=== PATIENT | female | born 1990 | race Hispanic/Latino ===

== ENCOUNTER 2023-06-21 16:05 | Emergency (ER) | payer OTHER ==
[2023-06-21 17:38] LABS: Absolute Lymphocytes (CBC) 2.1 K/uL (0.7-4.9); Hematocrit 44.1 % (36.0-45.0); Lymphocytes % 25.3 % (15.3-44.8); MCV 92.8 fL (80-100); MPV 9.1 fL (7.6-11.3); Platelets 228 thou/uL (152-406); RBC Red Blood Cell Count 4.75 M/uL (3.86-4.86)
[2023-06-21 17:54] LABS: Specific Gravity 1.029 (1.005-1.030)
[2023-06-21 17:58] LABS: Specific Gravity 1.029 (1.005-1.030); Urine Bacteria <20 /HPF (<20); Urine Bilirubin NEGATIVE (Negative); Urine Blood 3+ (OVER) (Negative); Urine Clarity Clear (Clear); Urine Color Light-Yellow (Yellow); Urine Glucose NEGATIVE (Negative); Urine Mucus Slight /HPF (None Seen); Urine Protein TRACE (Negative); Urine Urobilinogen Normal (Normal); Urine pH 6.5 (5.0-7.0)
--- NOTE | 2023-06-21 18:07 | RAD REPORT ---
EXAM DESCRIPTION: US - Transvaginal OB - 06/21/2023 5:46 pm CLINICAL HISTORY: with vaginal bleeding COMPARISON: None. FINDINGS: The uterus measures 9 x 5 x 6 centimeters. An irregularly shaped gestational sac was init ially visualize within endometrium of the uterine fundus. By the end of the exam it have migrated par tially into endometrium of the uterine body. The gestational sac measures 1.3 centimeters. A po le was not visualized. Ovaries are normal in size and echotexture.. The right and left adnexa unremarkable No significant free fluid IMPRESSION: These findings probably may indicate an impending . This should all be correlate d clinically. Serial beta HCG levels as well as follow up endovaginal sonogram in the
[2023-06-21 19:10] LABS: Potassium 3.5 mEq/L (3.5-5.1)
--- NOTE | 2023-06-21 19:38 | EDPHYS ---
Physician Documentation [facility] Name: Ceci Barron Age: 33 yrs Sex: Female : 1990 Arrival Date: 06/21/2023 Time: 16:05 Bed 14 Private MD: ED Physician Franko Cuevas HPI: 06/21 16:15 This 33 yrs old Female presents to ER via Unassigned with complaints of kb Vaginal Bleeding, + Preg <12wks. 16:15 The patient presents to the emergency department with abdominal pain, of the suprapubic kb area, vaginal bleeding, that is light, with clots. The estimated gestational age is 6 weeks. course: care: none. Previous pregnancies: in previous pregnancies patient has had. Associated signs and symptoms: Pertinent positives: abdominal pain, vaginal bleeding. The patient has not experienced similar symptoms in the past. The patient has not recently seen a physician. 16:16 Pt presents for suprapubic pain and vaginal bleeding with small clots that started kb today. 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 - Social history:: Smoking status: Patient denies any tobacco usage or history of. ROS: 16:16 Constitutional: Negative for fever, chills, and weight loss. kb 16:16 Abdomen/GI: Positive for abdominal pain. 16:16 : Positive for vaginal bleeding. 16:16 All other systems are negative. Exam: 16:16 Constitutional: This is a well developed, well nourished patient who is awake, alert, kb and in no acute distress. Head/Face: Normocephalic, atraumatic. ENT: Moist Mucous membranes Cardiovascular: Regular rate and rhythm with a normal S1 and S2. No gallops, murmurs, or rubs. No pulse deficits. Respiratory: Respirations even and unlabored. No increased work of breathing. Talking in full sentences Abdomen/GI: Soft, non-tender. No distention Skin: Warm, dry with normal turgor. Normal color. MS/ Extremity: Pulses equal, no cyanosis. Neurovascular intact. Full, normal range of motion. Neuro: Awake and alert, GCS 15, oriented to person, place, time, and situation. Moves all extremities. Normal gait. Vital Signs: 16:15 BP 113 / 74; Pulse 97; Resp 18; Temp 98.8; Pulse Ox 100% ; Weight 58.97 kg; Pain 8/10; cm10 17:00 BP 107 / 67; Pulse 87; Resp 16; Pulse Ox 100% on R/A; db 19:30 BP 101 / 79; Pulse 93; Resp 18 S; Pulse Ox 100% on R/A; ha1 16:15 Pain Scale: Adult cm10 MDM: 16:10 Patient medically screened. kb 16:17 Differential diagnosis: threatened Ab, inevitable Ab, missed Ab. Data reviewed: vital kb signs, nurses notes. 19:36 Counseling: I had a detailed discussion with the patient and/or guardian regarding the kb historical points, exam findings, and any diagnostic results supporting the discharge/admit diagnosis, lab results, radiology results, the need for outpatient follow up, an OB/Gyne specialist, to return to the emergency department if symptoms worsen or persist or if there are any questions or concerns that arise at home. 06/21 16:15 Order name: Abo/rh Typing; Complete Time: 19:36 kb 06/21 16:15 Order name: Basic Metabolic Panel; Complete Time: 19:10 kb 06/21 16:15 Order name: CBC with Diff; Complete Time: 17:43 kb 06/21 16:15 Order name: Test, Urine; Complete Time: 18:00 kb 06/21 16:15 Order name: Quantitative Hcg; Complete Time: 19:10 kb 06/21 16:15 Order name: Urinalysis w/ reflexes; Complete Time: 18:00 kb 06/21 16:15 Order name: US Transvaginal Ob; Complete Time: 18:09 kb 06/21 16:15 Order name: IV Saline Lock; Complete Time: 17:26 kb 06/21 16:15 Order name: Labs collected and sent; Complete Time: 17:26 kb 06/21 16:15 Order name: NPO; Complete Time: 17:26 kb 06/21 17:42 Order name: Labs - recollect needed: RECOLLECT BLOOD/ HEMOLYZED/ PRINTING LABELS; eb Complete Time: 18:42 Administered Medications: 19:39 Drug: Acetaminophen PO 1000 mg Route: PO; ha1 19:47 Follow up: Response: No adverse reaction ha1 Disposition: 20:22 Co-signature as Attending Physician, Franko Cuevas MD I reviewed the patient's care rn provided by the Advanced Practice Provider and agree with the diagnosis and treatment plan. Disposition Summary: 06/21/23 19:37 Discharge Ordered Location: Home kb Condition: Stable kb Diagnosis - Threatened kb Followup: kb - With: Emergency Department - When: As needed - Reason: Worsening of condition Followup: kb - With: Private Physician - When: 2 - 3 days - Reason: Recheck today's complaints, Continuance of care, Re-evaluation by your physician Discharge Instructions: - Discharge Summary Sheet kb - Threatened Miscarriage, [id number] kb - Vaginal Bleeding During , First Trimester, [id number] kb Forms: - Medication Reconciliation Form kb - Thank You Letter kb - Antibiotic Education kb - Prescription Opioid Use kb - Patient Portal Instructions kb - Leadership Thank You Letter kb Signatures: Dispatcher [employer] Evelyn Dewitt, ANTIQUE DEALER-C ANTIQUE DEALER-Ckb Franko Cuevas MD MD rn Botello, Elizabeth eb Ayala, Heidy, RN RN ha1 Nga Wynne RN RN cm10
--- NOTE | 2023-06-21 19:38 | ER ---
Nurse's Notes [facility] Name: Ceci Barron Age: 33 yrs Sex: Female : 1990 Arrival Date: 06/21/2023 Time: 16:05 Bed 14 Private MD: Diagnosis: Threatened Presentation: 06/21 16:15 Chief complaint: Patient states: abdominal pain and vaginal bleeding onset today. Pt cm10 reports she's approximately 6wks . Pt states that the bleeding is bright red, passing clots smaller than a quarter. Coronavirus screen: Vaccine status: Patient reports receiving the 2nd dose of the covid vaccine. Ebola Screen: Patient denies travel to an Ebola-affected area in the 21 days before illness onset. No symptoms or risks identified at this time. Initial Sepsis Screen: Does the patient meet any 2 criteria? HR > 90 bpm. No. Patient's initial sepsis screen is negative. Does the patient have a suspected source of infection? No. Patient's initial sepsis screen is negative. Risk Assessment: Do you want to hurt yourself or someone else? Patient reports no desire to harm self or others. Onset of symptoms was June 21, 2023. 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 - Social history:: Smoking status: Patient denies any tobacco usage or history of. Screenin:24 [facility] ED Fall Risk Assessment (Adult) History of falling in the last 3 months, db including since admission No falls in past 3 months (0 pts) Confusion or Disorientation No (0 pts) Intoxicated or Sedated No (0 pts) Impaired Gait No (0 pts) Mobility Assist Device Used No (0 pt) Altered Elimination No (0 pt) Score/Fall Risk Level 0 - 2 = Low Risk Oriented to surroundings, Maintained a safe environment. Abuse screen: Denies threats or abuse. Denies injuries from another. Nutritional screening: No deficits noted. Tuberculosis screening: No symptoms or risk factors identified. Assessment: 17:25 Obstetrical Assessment: General assessment: awake and alert, skin warm and dry. db Reassessment: Patient appears in no apparent distress at this time. Patient and/or family updated on plan of care and expected duration. Pain level reassessed. Patient is alert, oriented x 3, equal unlabored respirations, skin warm/dry/pink. Reassessment: PT STATES HAS VAGINAL BLEEDING TODAY IS 6 WEEKS . General: Appears in no apparent distress. comfortable, Behavior is calm, cooperative. Pain: Complains of pain in abdomen. GI: Abdomen is flat, non-distended, Reports lower abdominal pain. 18:14 Reassessment: PATIENT RETURNED TO ROOM FROM ULTRASOUND. db 19:30 Reassessment: Patient and/or family updated on plan of care and expected duration. Pain ha1 level reassessed. Patient is alert, oriented x 3, equal unlabored respirations, skin warm/dry/pink. Vital Signs: 16:15 BP 113 / 74; Pulse 97; Resp 18; Temp 98.8; Pulse Ox 100% ; Weight 58.97 kg; Pain 8/10; cm10 17:00 BP 107 / 67; Pulse 87; Resp 16; Pulse Ox 100% on R/A; db 19:30 BP 101 / 79; Pulse 93; Resp 18 S; Pulse Ox 100% on R/A; ha1 16:15 Pain Scale: Adult cm10 ED Course: 16:08 Patient arrived in ED. mr 16:09 Evelyn Goldman FNP-C [facility]. kb 16:09 Franko Cuevas MD is Attending Physician. kb 16:16 Triage completed. cm10 16:17 Arm band placed on Patient placed in waiting room. cm10 17:04 Gely Brasher, [place] is Primary Nurse. db 17:10 Urine collected: clean catch specimen, clear. db 17:15 Missed attempt(s): 20 gauge in right antecubital area. Bleeding controlled, band aid db applied, catheter tip intact. 17:20 Initial lab(s) drawn, by me, sent to lab. Inserted saline lock: 22 gauge in right db forearm, using aseptic technique. Blood collected. 17:48 US Transvaginal Ob In Process Unspecified. EDMS 19:00 Patient has correct armband on for positive identification. Placed in gown. Bed in low ha1 position. Call light in reach. Side rails up X 1. 19:46 No provider procedures requiring assistance completed. IV discontinued, intact, ha1 bleeding controlled, No redness/swelling at site. Pressure dressing applied. 19:47 Provided Education on: follow up with OB. ha1 Administered Medications: 19:39 Drug: Acetaminophen PO 1000 mg Route: PO; ha1 19:47 Follow up: Response: No adverse reaction ha1 Medication: 19:47 VIS not applicable for this client. ha1 Outcome: 19:37 Discharge ordered by . kb 19:46 Discharged to home ambulatory, with family. ha1 19:46 Condition: stable 19:46 Discharge instructions given to patient, Instructed on discharge instructions, follow up and referral plans. Demonstrated understanding of instructions, follow-up care. 19:48 Patient left the ED. ha1 Signatures: Dispatcher [employer] EDMA Evelyn Goldman, CLAUDIA-C SCALE RECLAMATION TENDER-Viri OwusuaTeresa Heidy, RN RN ha1 Gely Brasher, RN RN Nga Kee, RN RN cm10 Corrections: (The following items were deleted from the chart) 17:09 17:08 BP 107 / 67; Pulse 87bpm; Resp 16bpm; Pulse Ox 100% RA; db db
[2023-06-21] MEDS ORDERED: ACETAMINOPHEN 500 MG TAB ONE (19:42)
[2023-06-21 20:14] VITALS: TEMP 98.8; O2SAT 100
[2023-06-21 20:17] VITALS: BP 101/79
== END 2023-06-21 19:48 | disposition home or self-care (01) ==
LOC: ER 16:05
DX: O20.0 Threatened abortion (principal)
CPT/HCPCS: 36415; 76817; 80048; 81001; 81025; 84702; 85025; 86900; 86901; 99284